=== PATIENT | male | born 1990 | race Caucasian/White ===

== ENCOUNTER 2017-12-20 00:47 | Emergency (ER) | payer OTHER ==
[~2017-12-20] VITALS: Ht 188 cm; Wt 108.0 kg
[2017-12-20 03:10] LABS: BASOPHIL % 0.2 % (0-2); PLATELET COUNT 156 x10^3mcL (130-400); RED CELL DISTRIBUTION WIDTH 13.6 % (11.5-14.5)
[2017-12-20 03:22] LABS: CARBON DIOXIDE 27.6 mmol/L (21-32); CHLORIDE SERUM 105 mmol/L (98-107); GFR1 > 60 mL/min; GLUCOSE SERUM 113 mg/dL (74-106); POTASSIUM SERUM 3.2 mmol/L (3.5-5.1); SODIUM SERUM 141 mmol/L (136-145)
[2017-12-20 03:34] LABS: AMPHETAMINE QUAL UR NONE DETECTED (NEG <=1000)
[2017-12-20 03:36] LABS: ALBUMIN 3.6 g/dL (3.4-5.0); ALKALINE PHOSPHATASE 89 U/L (46-116); ALT/SGPT 38 U/L (16-63); AST/SGOT 22 U/L (15-37); BILIRUBIN TOTAL 0.24 mg/dL (0.20-1.00)
[2017-12-20 04:32] VITALS: BP 132/69
== END 2017-12-20 04:32 | disposition home or self-care (01) ==
LOC: ED 00:47
PROVIDERS: Emergency Medicine
DX: E87.6 Hypokalemia (principal); R06.02 Shortness of breath
CPT/HCPCS: 36415; 85378; Q0092